=== PATIENT | male | born 1990 | race Caucasian/White ===

== ENCOUNTER 2022-02-12 08:30 | Emergency (ER) | payer SELFPAY ==
[~2022-02-12] VITALS: Ht 182.9 cm; Wt 74.8 kg
[2022-02-12 08:30] VITALS: BP_SYST 126
== END 2022-02-12 09:39 | disposition home or self-care (01) ==
LOC: SED 08:30
DX: Z02.89 Encounter for other administrative examinations (principal)
CPT/HCPCS: 99283